=== PATIENT | male | born 1975 | race Native Hawaiian/Other Pacific Islander ===

== ENCOUNTER 2021-03-05 17:56 | Emergency (ER) | payer BC ==
[~2021-03-05] VITALS: Ht 188 cm; Wt 104.3 kg
[2021-03-05 19:29] VITALS: BP 120/64; TEMP 98
== END 2021-03-05 19:29 | disposition home or self-care (01) ==
LOC: ED 17:56
DX: M54.59 Other low back pain (principal); M53.3 Sacrococcygeal disorders, not elsewhere classified
CPT/HCPCS: 99283